=== PATIENT | male | born 1965 | race Caucasian/White ===

== ENCOUNTER 2017-11-27 15:50 | Observation (INO) | payer BC ==
[~2017-11-27] VITALS: Ht 182.9 cm; Wt 134.4 kg
[2017-11-27 16:14] LABS: BASOPHIL (%) 0.7 % (0-1); BASOPHIL COUNT 0.1 K/uL (0-0.1); EOSINOPHIL (%) 1.1 % (0-5); EOSINOPHIL COUNT 0.1 K/uL (0-0.3); HEMATOCRIT 48.5 % (38.0-50.0); HEMOGLOBIN 16.8 G/DL (12.5-16.6); IMMATURE GRANULOCYTE (%) 0.4 % (0.0-0.7); LYMPHOCYTE (%) 25.3 % (15-42); LYMPHOCYTE COUNT 2.4 K/uL (1.0-2.8); MCH 32.2 PG (29.0-34.0); MCHC 34.6 G/DL (30.0-36.0); MCV 93.1 FL (86-99); MONOCYTE (%) 7.6 % (3-12); MONOCYTE COUNT 0.7 K/uL (0-0.8); NEUTROPHIL (%) 64.9 % (45-76); NEUTROPHIL COUNT 6.1 K/uL (1.8-6.4); PLATELET COUNT 257 K/uL (156-360); RBC DIS.WIDTH-SD 42.1 % (39-53); RED BLOOD COUNT 5.21 M/uL (4.00-5.50); WHITE BLOOD COUNT 9.5 K/uL (4.1-10.2)
[2017-11-27 16:16] LABS: AMYLASE 60 IU/L (1-118); CHLORIDE 106 mEq/L (99-109); POTASSIUM 4.9 mEq/L (3.7-5.4); SODIUM 139 mEq/L (136-147)
[2017-11-27 16:17] LABS: GLUCOSE 244 mg/dL (70-99)
[2017-11-27 16:21] LABS: CREATININE 1.5 mg/dL (0.6-1.3); GFR ESTIMATE (CALCULATED) 52 mL/min/ (58.99-99999); SERUM ETHYL ALCOHOL < 10 mg/dL
[2017-11-27 16:22] LABS: UREA NITROGEN (BUN) 17 mg/dL (9-23)
[2017-11-27 16:28] LABS: LIPASE 13 U/L (1.0-51.0)
[2017-11-27 16:43] LABS: TROP-I INTERPRETATION NEGATIVE; TROPONIN-I < 0.01 ng/mL (0.0-0.30)
[2017-11-27] MEDS ORDERED: NADOLOL20 MG PO (16:56)
[2017-11-27] MEDS ORDERED: RAMIPRIL2.5 MG PO (16:56)
[2017-11-27] MEDS ORDERED: TOUJEO SOL300 UNIT/1 SC (17:01)
[2017-11-27] MEDS ORDERED: NOVOLIN,HU100 UNITS1 SC (17:02)
[2017-11-27] MEDS ORDERED: ADULT ASPIRIN R81 MG PO (17:03)
[2017-11-27] MEDS ORDERED: DAILY VALUE1 EACH PO (17:03)
[2017-11-27] MEDS ORDERED: CLARITIN10 MG PO (17:03)
[2017-11-27] MEDS ORDERED: VITAMIN D31000 UNIT PO (17:04)
[2017-11-27] MEDS ORDERED: KRILL OIL500 MG PO (17:04)
[2017-11-27 18:28] LABS: APPEARANCE CLEAR ((CLEAR)); BILIRUBIN NEGATIVE; BLOOD NEGATIVE; COLOR YELLOW ((YELLOW)); GLUCOSE (STRIP) >=500; KETONES NEGATIVE; LEUKOCYTES NEGATIVE; NITRITE NEGATIVE; PROTEIN (STRIP) NEGATIVE; SPECIFIC GRAVITY 1.027 (1.000-1.030); UCUL ADDED? NO; UROBILINOGEN 0.2 MG/DL (0.2-1.0)
[2017-11-27 18:42] LABS: AMPHETAMINE NEGATIVE (500 ng/mL); BARBITURATES NEGATIVE (200 ng/mL); BENZODIAZEPINES NEGATIVE (150 ng/mL); BUPRENORPHINE NEGATIVE (10 ng/mL); COCAINE NEGATIVE (150 ng/mL); METHADONE NEGATIVE (200 ng/mL); METHAMPHETAMINE NEGATIVE (500 ng/mL); OPIATES (MORPHINE) NEGATIVE (100 ng/mL); OXYCODONE NEGATIVE (100 ng/mL); PHENCYCLIDINE NEGATIVE (25 ng/mL); PROPOXYPHENE NEGATIVE (300 ng/mL); THC CANNABINOIDS NEGATIVE (50 ng/mL); TRICYCLIC ANTIDEPRESSANTS NEGATIVE (300 ng/mL)
[2017-11-27 20:54] VITALS: BP 128/76
[2017-11-28 00:12] VITALS: BP 113/66
[2017-11-28 06:17] LABS: HEMATOCRIT 39.7 % (38.0-50.0); MCH 31.3 PG (29.0-34.0); MCHC 33.5 G/DL (30.0-36.0); MCV 93.4 FL (86-99); PLATELET COUNT 214 K/uL (156-360); RBC DIS.WIDTH-CV 12.2 % (11.8-14.6); RBC DIS.WIDTH-SD 41.9 % (39-53); RED BLOOD COUNT 4.25 M/uL (4.00-5.50); WHITE BLOOD COUNT 6.8 K/uL (4.1-10.2)
[2017-11-28 06:27] LABS: HEMOGLOBIN 13.3 G/DL (12.5-16.6)
[2017-11-28 06:38] LABS: ALBUMIN 3.4 G/DL (3.2-4.8); ALKALINE PHOSPHATASE 83 IU/L (3-129); ALT (GPT) 88 IU/L (3-49); AST (GOT) 161 IU/L (2-34); CHLORIDE 107 MEQ/L (99-109); CREATININE 1.2 MG/DL (0.6-1.3); GFR ESTIMATE (CALCULATED) > 59 mL/min/ (58.99-99999); GLUCOSE 140 mg/dL (70-99); POTASSIUM 4.1 MEQ/L (3.7-5.4); SODIUM 142 MEQ/L (136-147); TOTAL BILIRUBIN 1.8 MG/DL (0.0-1.0); TOTAL PROTEIN 5.3 G/DL (6.4-8.3); UREA NITROGEN (BUN) 13 mg/dL (9-23)
[2017-11-28 09:00] VITALS: BP 114/72
[2017-11-28] MEDS ORDERED: TRAMADOL HCL50 MG PO (11:17)
[2017-11-28 11:38] VITALS: BP 112/71
[2017-11-28 14:29] LABS: HEMOGLOBIN A1c (GLYCOHEMOGLOB) 7.7 % (Below 5.7)
== END 2017-11-28 12:24 | disposition home or self-care (01) ==
LOC: TRA 15:50 → EDOF 18:32 → 3EAST 18:32 → EDOF 18:32 → ENRESERV 19:09 → 3EAST 20:48
PROVIDERS: Emergency Medicine; Surgery
DX: S06.6X1A Traumatic subarachnoid hemorrhage with loss of consciousness of 30 minutes or less, initial encounter (principal); S00.03XA Contusion of scalp, initial encounter; M25.511 Pain in right shoulder; M54.2 Cervicalgia; M54.5 Low back pain; I10 Essential (primary) hypertension; E11.9 Type 2 diabetes mellitus without complications; W10.9XXA Fall (on) (from) unspecified stairs and steps, initial encounter; W17.89XA Other fall from one level to another, initial encounter; Y93.H3 Activity, building and construction; Y92.008 Other place in unspecified non-institutional (private) residence as the place of occurrence of the external cause; Y99.8 Other external cause status; E66.9 Obesity, unspecified; Z90.49 Acquired absence of other specified parts of digestive tract; Z79.4 Long term (current) use of insulin; Z79.82 Long term (current) use of aspirin
CPT/HCPCS: 70450; 71045; 72125; 72132; 73030; 74177; 80048; 80053; 81003; 82150; 82948; 83036; 83690; 84484; 85025; 85027; 86850; 86900; 86901; 93005; 99281; 99285; G0378; G0480; J7120